=== PATIENT | female | born 1965 | race Caucasian/White ===

== ENCOUNTER 2016-08-29 17:16 | Emergency (ER) | payer BC ==
[~2016-08-29 17:16] MED LIST: KADIAN10 MG PO; NUCYNTA75 MG PO; OPANA ER20 MG PO; PERCOCET1 TA4 PO; PRILO PO; RELA5 PO; RITALIN10 PO; XANAX1 MG PO
== END 2016-08-29 18:43 | disposition home or self-care (01) ==
LOC: ER 17:16
DX: H00.034 Abscess of left upper eyelid (principal); F17.200 Nicotine dependence, unspecified, uncomplicated; Z88.8 Allergy status to other drugs, medicaments and biological substances; Z88.2 Allergy status to sulfonamides; Z88.5 Allergy status to narcotic agent; Z79.899 Other long term (current) drug therapy
CPT/HCPCS: 96365; 99283; J0295